=== PATIENT | female | born 1970 | race African-American/Black ===

== ENCOUNTER → 2017-08-31 | Outpatient (CLI) | payer OTHER ==
[~2017-08-31] MED LIST: KEFLEX500 M1 PO; LEVAQUIN 500 M500 M3 PO; PREDNISONE50 MG PO; SYNTHROID137 MCG PO; SYNTHROID150 MCG; VISTARIL 25 MG25 M1 PO
== END ==
LOC: M.MRI 08:15
DX: S93.491A Sprain of other ligament of right ankle, initial encounter (principal); M76.71 Peroneal tendinitis, right leg; M76.821 Posterior tibial tendinitis, right leg; X58.XXXA Exposure to other specified factors, initial encounter; Y93.89 Activity, other specified; Y92.89 Other specified places as the place of occurrence of the external cause; Y99.8 Other external cause status

== ENCOUNTER 2018-03-13 23:27 | Emergency (ER) | payer OTHER ==
[~2018-03-13] VITALS: Ht 162.6 cm; Wt 81.7 kg
[~2018-03-13 23:27] MED LIST changes: -KEFLEX500 M1 PO; -PREDNISONE50 MG PO; -SYNTHROID150 MCG
[2018-03-13] MEDS ORDERED: SYNTHROID150 MCG (23:41)
[2018-03-13] MEDS ORDERED: PREDNISONE50 MG PO (23:53)
[2018-03-13] MEDS ORDERED: KEFLEX500 M1 PO (23:53)
[2018-03-14 00:09] VITALS: BP 134/79
== END 2018-03-14 00:10 | disposition home or self-care (01) ==
LOC: M.ERS 23:27
DX: S80.862A Insect bite (nonvenomous), left lower leg, initial encounter (principal); E89.0 Postprocedural hypothyroidism; Z88.0 Allergy status to penicillin; W57.XXXA Bitten or stung by nonvenomous insect and other nonvenomous arthropods, initial encounter; Y93.89 Activity, other specified; Y92.89 Other specified places as the place of occurrence of the external cause; Y99.8 Other external cause status

== ENCOUNTER 2020-04-11 16:51 | Emergency (ER) | payer OTHER ==
[~2020-04-11] VITALS: Ht 162.6 cm; Wt 81.7 kg
[~2020-04-11 16:51] MED LIST changes: +KEFLEX500 M1 PO; +PREDNISONE50 MG PO; +SYNTHROID150 MCG
[2020-04-11] MEDS ORDERED: TRIAMCINOLONE A15 G1 TP (17:11)
[2020-04-11 17:37] VITALS: BP 137/95
== END 2020-04-11 17:38 | disposition home or self-care (01) ==
LOC: M.ERS 16:51
DX: S70.361A Insect bite (nonvenomous), right thigh, initial encounter (principal); Z88.0 Allergy status to penicillin; Z88.6 Allergy status to analgesic agent; Z98.51 Tubal ligation status; W57.XXXA Bitten or stung by nonvenomous insect and other nonvenomous arthropods, initial encounter; Y93.89 Activity, other specified; Y92.89 Other specified places as the place of occurrence of the external cause; Y99.8 Other external cause status

== ENCOUNTER 2020-09-18 19:27 | Emergency (ER) | payer OTHER ==
[~2020-09-18] VITALS: Ht 162.6 cm; Wt 81.7 kg
[~2020-09-18 19:27] MED LIST changes: +TRIAMCINOLONE A15 G1 TP
[2020-09-18] MEDS ORDERED: DOXYCYCLINE 10100 M2 PO (20:55)
[2020-09-18] MEDS ORDERED: TRAMADOL 50 MG50 MG PO (20:58)
[2020-09-18 21:03] VITALS: BP 119/76
== END 2020-09-18 21:03 | disposition home or self-care (01) ==
LOC: M.ERS 19:27
DX: S61.411A Laceration without foreign body of right hand, initial encounter (principal); Z88.6 Allergy status to analgesic agent; Z88.0 Allergy status to penicillin; Z98.51 Tubal ligation status; W54.0XXA Bitten by dog, initial encounter; Y93.89 Activity, other specified; Y92.89 Other specified places as the place of occurrence of the external cause; Y99.8 Other external cause status